=== PATIENT | female | born 1995 | race Caucasian/White ===

== ENCOUNTER 2020-05-15 05:53 | Inpatient (IN) ==
[2020-05-15] MEDS ORDERED: LACTATED RINGERS 500 ML IV PRN (06:24)
[2020-05-15] MEDS ORDERED: ONDANSETRON 4 MG/2 ML VIAL IV PRN ×2 (06:24→23:55)
[2020-05-15] MEDS ORDERED: MEPERIDINE 50 MG/1 ML VIAL IM PRN (06:24)
[2020-05-15] MEDS ORDERED: BUTORPHANOL 2 MG/ML VIAL IV PRN (06:24)
[2020-05-15] MEDS: LACTATED RINGERS 1,000 ML IV SCH ×2 (06:42→19:29)
[2020-05-15 06:44] LABS: Basophils % 0.3 % (0.0-0.8); Eosinophils # 0.1 10*3/uL (0.0-0.87); Eosinophils % 0.7 % (0.00-10.9); Hemoglobin 9.4 GM/DL (12.0-16.0); Immature Granulocytes Absolute 0.43 #; Lymphocytes # 1.2 10*3/uL (1.4-4.0); Lymphocytes % 11.6 % (21.3-54.2); Mean Corpuscular HGB Conc 30.3 GM/DL (32-36); Mean Corpuscular Volume 73.5 FL (87-102); Mean Platelet Volume 10.8 FL (9.6-12.0); Monocytes % 9.5 % (1.7-12.7); Neutrophils % 73.9 % (38.7-73.9); Platelet Count 318 T/CUMM (130-400); Red Blood Count 4.22 MC/CUMM (3.8-5.5); Red Cell Distribution Width 15.7 % (9.3-17.3); White Blood Count 10.7 T/CUMM (4-12)
[2020-05-15 07:10] LABS: Albumin 2.3 G/DL (3.4-5.0); Bilirubin,Total 0.4 MG/DL (0.2-1.0); Calcium 8.5 MG/DL (8.5-10.1); Osmolality,Calculated 270.8 MOS/KG (273-304); Total Protein 6.6 G/DL (6.4-8.3)
[2020-05-15] MEDS: OXYTOCIN/LR 20 UNIT/1,000 ML BAG IV SCH ×2 (07:42→23:48)
[2020-05-15] MEDS ORDERED: LACTATED RINGERS 1,000 ML IV ONE (10:37)
[2020-05-15] MEDS ORDERED: diphenhydrAMINE 50 MG/1 ML VIAL IV PRN ×2 (10:44)
[2020-05-15] MEDS ORDERED: ONDANSETRON 4 MG/2 ML VIAL IV ONE (10:44)
[2020-05-15] MEDS ORDERED: NALOXONE 0.4 MG/ML VIAL IV PRN (10:44)
[2020-05-15] MEDS ORDERED: PROMETHAZINE 25 MG/1 ML VIAL IM ONE (10:44)
[2020-05-15] MEDS ORDERED: FAMOTIDINE 20 MG/2 ML VIAL IV ONE (10:44)
[2020-05-15] MEDS ORDERED: hydrOXYzine HCL 25 MG/1 ML VIAL IM PRN (10:44)
[2020-05-15] MEDS ORDERED: CITRIC ACID/SODIUM CITRATE 30 ML UDCUP PO ONE (10:44)
[2020-05-15] MEDS ORDERED: ePHEDrine 50 MG/ML VIAL IV PRN (10:44)
[2020-05-15] MEDS: fentaNYL 2 MCG/ROPIV 0.2% EPID 100 ML EPIDURAL SCH ×2 (13:02→19:23)
[2020-05-15] MEDS ORDERED: TRANEXAMIC ACID 1,000 MG/10 ML VIAL ONE (17:47)
[2020-05-15] MEDS ORDERED: miSOPROStoL 200 MCG TABLET ONE (17:47)
[2020-05-15] MEDS ORDERED: METHYLERGONOVINE 0.2 MG/1 ML AMP ONE (17:47)
[2020-05-15] MEDS ORDERED: CARBOPROST TROMETHAMINE 250 MCG/ML AMP IM ONE (17:47)
[2020-05-15] MEDS ORDERED: LIDOCAINE 1% 50 ML VIAL ONE (17:48)
[2020-05-15] MEDS ORDERED: SODIUM CHLORIDE 0.9% 0 ML IV ONE (17:48)
[2020-05-15 19:12] LABS: Bilirubin,Urine Negative (Negative); Blood, Urine Negative (Negative); Glucose,Urine (UA) Negative (Negative); Ketones,Urine 20 mg/dL (Negative); Nitrite,Urine Negative (Negative); Protein,Urine Negative; RBC,Urine <1 /HPF (0-4); Squamous Epithelial Cell,Urine Occasional /HPF (0-10); Urine Appearance CLEAR (Clear); Urine Color Straw (Yellow); Urine Specific Gravity 1.006 (1.001-1.035); Urine Urobilinogen < 2.0 EU/DL (0.2-1.0); WBC,Urine <1 /HPF (0-6)
[2020-05-15] MEDS ORDERED: fentaNYL 100 MCG/2 ML VIAL ONE (23:35)
[2020-05-15] MEDS ORDERED: BUPIVACAINE SPINAL 0.75% 2 ML AMP SPINAL ONE (23:36)
[2020-05-15 23:53] LABS: Cord Venous Blood HCO3 19.7 MMOL/L; Cord Venous Blood PCO2 42.4 MMHG; Cord Venous Blood PO2 29.8
[2020-05-15] MEDS ORDERED: DIPH/TET/ACEL PERT BOOSTER VACCINE 0.5 ML VIAL IM ONE (23:55)
[2020-05-15] MEDS ORDERED: BENZOCAINE 20%/MENTHOL 0.5% SPRAY 56 GM CAN TOP PRN (23:55)
[2020-05-15] MEDS ORDERED: OXYTOCIN/LR 20 UNIT/1,000 ML BAG IV ONE (23:55)
[2020-05-15] MEDS ORDERED: MEASLES/MUMPS/RUBELLA VACCINE 0.5 ML VIAL SUBCUT ONE (23:55)
[2020-05-15] MEDS ORDERED: oxyCODONE/ACETAMINOPHEN 5-325 MG TABLET PO PRN ×2 (23:55)
[2020-05-15] MEDS ORDERED: LANOLIN 50% CREAM 0.3 OZ TUBE TOP PRN (23:55)
[2020-05-15] MEDS ORDERED: BISACODYL 10 MG SUPP RECTAL PRN (23:55)
[2020-05-15] MEDS ORDERED: HYDROCORTISONE 2.5% RECTAL CREAM 30 GM TUBE TOP PRN (23:55)
[2020-05-15] MEDS ORDERED: RHO(D) IMMUNE GLOBULIN 300 MCG SYRINGE IM ONE (23:55)
[2020-05-15] MEDS ORDERED: WITCH HAZEL PADS 100/JAR TOP PRN (23:55)
[2020-05-16] MEDS ORDERED: ACETAMINOPHEN 325 MG TABLET PO PRN
[2020-05-16] MEDS: IBUPROFEN 800 MG TABLET PO PRN ×2 (01:37→12:45)
[2020-05-16 06:42] LABS: Basophils % 0.2 % (0.0-0.8); Eosinophils % 0.1 % (0.00-10.9); Hematocrit 24.3 VOL% (35.7-47.0); Hemoglobin 7.5 GM/DL (12.0-16.0); Lymphocytes % 5.3 % (21.3-54.2); Mean Corpuscular HGB Conc 30.9 GM/DL (32-36); Mean Corpuscular Volume 72.1 FL (87-102); Mean Platelet Volume 10.9 FL (9.6-12.0); Monocytes % 7.4 % (1.7-12.7); Platelet Count 289 T/CUMM (130-400); Red Blood Count 3.37 MC/CUMM (3.8-5.5); White Blood Count 19.4 T/CUMM (4-12)
[2020-05-16] MEDS: DOCUSATE SODIUM 100 MG CAPSULE PO SCH ×2 (08:08→20:15)
[2020-05-16] MEDS: FERROUS SULFATE 325 MG TABLET PO SCH ×2 (08:08→20:18)
[2020-05-17] MEDS: DOCUSATE SODIUM 100 MG CAPSULE PO SCH (09:15)
[2020-05-17] MEDS: FERROUS SULFATE 325 MG TABLET PO SCH (09:15)
[2020-05-17 11:34] VITALS: BP 120/80
== END 2020-05-17 13:20 | disposition home or self-care (01) | DRG 768 ==
LOC: N.LDOUT 05:53 → N.LD 05:55 → N.OB 05-16 03:50
PROVIDERS: ADMIT Obstetrics & Gynecology; ATTEND Obstetrics & Gynecology